=== PATIENT | male | born 1950 | race Two or more races ===

== ENCOUNTER 2023-12-24 22:02 | Emergency (ER) | payer MEDICARE, OTHER ==
[~2023-12-24] VITALS: Ht 172.7 cm; Wt 108.9 kg
[2023-12-24 23:07] LABS: BASOPHILS % (AUTO) 0.1 % (0.0-2.0); EOSINOPHILS % (AUTO) 0.4 % (0.0-6.0); HEMATOCRIT 48 % (39-51); LYMPHOCYTES # (AUTO) 3.8 K/uL (0.8-4.8); LYMPHOCYTES % (AUTO) 29.2 % (20.0-44.0); MEAN CORPUSCULAR HEMOGLOBIN 32 PG (26.0-33.0); MEAN CORPUSCULAR HGB CONC 33 g/dl (31.0-36.0); MEAN CORPUSCULAR VOLUME 96 fL (80-96); MONOCYTES # (AUTO) 0.9 K/uL (0.1-1.30); MONOCYTES % (AUTO) 6.7 % (2.0-12.0); NEUTROPHILS # (AUTO) 8.2 K/uL (1.8-8.9); NEUTROPHILS % (AUTO) 63.6 % (43.0-81.0); PLATELET COUNT (AUTO) 209 K/uL (150-450); RED BLOOD CELL COUNT(AUTO) 5.05 MIL/uL (4.5-6.0); RED CELL DISTRIBUTION WIDTH 14.7 % (11.5-15.0)
[2023-12-24 23:17] LABS: CALCIUM, SERUM 9.6 mg/dL (8.5-10.1); CARBON DIOXIDE 27 mmol/L (21-32); CHLORIDE 105 mmol/L (98-107); CREATININE 1.3 mg/dL (0.6-1.3); GLUCOSE 123 mg/dL (74-106); POTASSIUM 4.4 mmol/L (3.5-5.1); SODIUM SERUM 142 mmol/L (136-145); UREA NITROGEN, BLOOD 19 mg/dL (7-18)
[2023-12-24 23:30] LABS: ALANINE AMINOTRANSFERASE 28 U/L (12-78); ALBUMIN 3.9 g/dL (3.4-5.0); ALKALINE PHOSPHATASE 88 U/L (46-116); ASPARTATE AMINOTRANSFERASE 18 U/L (15-37); BILIRUBIN,DIRECT 0.1 mg/dL (0.0-0.2); BILIRUBIN,TOTAL 0.4 mg/dL (0.2-1.0); NT-PRO BNP 26 pg/mL (0-125); TOTAL PROTEIN, SERUM 7.8 g/dL (6.4-8.2)
[2023-12-25 00:36] VITALS: BP 129/79; TEMP 98; O2SAT 94
== END 2023-12-25 00:36 | disposition home or self-care (01) ==
LOC: ER 22:04
DX: R42 Dizziness and giddiness (principal); R53.83 Other fatigue; I10 Essential (primary) hypertension; E11.9 Type 2 diabetes mellitus without complications; Z20.822 Contact with and (suspected) exposure to COVID-19
CPT/HCPCS: 36415; 71045-TC; 80048-TC; 80076-TC; 83880; 84484-TC; 85025-TC